=== PATIENT | male | born 1995 | race Caucasian/White ===

== ENCOUNTER 2016-09-30 08:50 | Emergency (ER) | payer OTHER, BC ==
[2016-09-30] MEDS ORDERED: HYDROcodone-APAP 5 MG -325 MG TABLET PO ONE (09:13)
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
[2016-09-30 10:32] VITALS: RESP 16; TEMP 98
== END 2016-09-30 09:55 | disposition home or self-care (01) ==
LOC: ER 08:50
DX: M54.2 Cervicalgia (principal); R51 Headache; V43.52XA Car driver injured in collision with other type car in traffic accident, initial encounter
CPT/HCPCS: 99282

== ENCOUNTER 2016-10-26 14:10 | Emergency (ER) | payer OTHER, BC ==
[2016-10-26 14:26] VITALS: RESP 12; TEMP 97.2
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
== END 2016-10-26 15:52 | disposition home or self-care (01) ==
LOC: ER 14:10
DX: S16.1XXD Strain of muscle, fascia and tendon at neck level, subsequent encounter (principal); V43.52XD Car driver injured in collision with other type car in traffic accident, subsequent encounter
CPT/HCPCS: 72125; 99282

== ENCOUNTER → 2016-10-26 | Outpatient (CLI) | payer OTHER, BC ==
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
== END ==
LOC: RAD 12:44
PROVIDERS: ATTEND Physician Assistant Medical
DX: S19.9XXA Unspecified injury of neck, initial encounter (principal); V43.52XA Car driver injured in collision with other type car in traffic accident, initial encounter
CPT/HCPCS: 72050